=== PATIENT | male | born 1955 | race Caucasian/White ===

== ENCOUNTER → 2017-07-08 | Outpatient (CLI) | payer OTHER ==
[2017-07-08 14:56] LABS: BASOPHILS # (AUTO) 0.03 x10^3/uL (0-0.1); BASOPHILS % (AUTO) 0 % (0-1); EOSINOPHILS # (AUTO) 0.07 x10^3/uL (0-0.4); EOSINOPHILS % (AUTO) 1 % (1-7); LYMPHOCYTES # (AUTO) 2.13 x10^3/uL (1-3.4); LYMPHOCYTES % (AUTO) 28 % (22-44); MD NO; MEAN CORPUSCULAR HEMOGLOBIN 33.2 pg (27.5-34.5); MEAN CORPUSCULAR HGB CONC 35.1 g/dL (33.2-36.2); MEAN CORPUSCULAR VOLUME 94.7 fL (81-97); MEAN PLATELET VOLUME 7.7 fL (7.4-10.4); MONOCYTES # (AUTO) 0.49 x10^3/uL (0.2-0.8); MONOCYTES % (AUTO) 7 % (2-9); NEUTROPHILS # (AUTO) 4.87 x10^3/uL (1.8-6.8); NEUTROPHILS % (AUTO) 64 % (42-75); PLATELET COUNT 171 x10^3/uL (130-400); RED BLOOD COUNT 4.56 x10^6/uL (4.38-5.82); RED CELL DISTRIBUTION WIDTH 12.3 % (9.4-14.8)
[2017-07-08 14:59] LABS: MICROSCOPIC AUTO
[2017-07-08 15:05] LABS: ANION GAP 10 mmol/L (5-15); CHLORIDE 109 mmol/L (98-107); CREATININE 0.99 mg/dL (0.7-1.3); CULTURE INDICATED? NO
== END | disposition home or self-care (01) ==
LOC: STAR 13:37
PROVIDERS: ATTEND Orthopaedic Surgery
DX: Z01.818 Encounter for other preprocedural examination (principal); M17.12 Unilateral primary osteoarthritis, left knee
CPT/HCPCS: 36415; 80048; 81001; 85025; 87081; 93005

== ENCOUNTER 2017-07-28 08:04 | Inpatient (IN) | payer OTHER ==
[~2017-07-28] VITALS: Ht 193 cm; Wt 128.5 kg
[~2017-07-28 08:04] MED LIST: None at this Time
[2017-07-28 08:41] VITALS: BP 161/109
[2017-07-28] MEDS ORDERED: PROMETHAZINE 12.5 MG SUPP PR PRN ×2 (09:00→14:00)
[2017-07-28] MEDS ORDERED: OXYcodone 5 MG/5 ML ORAL.SOL UDC PO PRN (09:00)
[2017-07-28] MEDS ORDERED: MORPHINE SULFATE 4 MG/ML, 1ML IVPush PRN (09:00)
[2017-07-28] MEDS ORDERED: LIDOCAINE-MPF 1%, 2ML INFIL ONE (09:00)
[2017-07-28] MEDS ORDERED: MEPERIDINE/PF 25MG/0.5ML IVPush PRN (09:00)
[2017-07-28] MEDS: LACTATED RINGERS 1,000 ML IV SCH ×2 (09:15→15:18)
[2017-07-28] MEDS ORDERED: MIDAZOLAM 1 MG/ML, 2ML ONE (09:19)
[2017-07-28] MEDS ORDERED: FENTANYL PF 250 MCG/5ML ONE (09:20)
[2017-07-28] MEDS ORDERED: ACETAMINOPHEN 500 MG TABLET ONE (09:24)
[2017-07-28] MEDS ORDERED: FAMOTIDINE 20 MG TABLET ONE (09:25)
[2017-07-28] MEDS ORDERED: GABAPENTIN 300 MG CAPSULE ONE (09:25)
[2017-07-28] MEDS ORDERED: OXYcodone IR 5MG TABLET ONE (09:26)
[2017-07-28] MEDS ORDERED: OXYcodone IR 5MG TABLET PO ONE (09:30)
[2017-07-28] MEDS ORDERED: FAMOTIDINE 20 MG TABLET PO ONE (09:30)
[2017-07-28] MEDS ORDERED: GABAPENTIN 300 MG CAPSULE PO ONE (09:30)
[2017-07-28] MEDS ORDERED: ACETAMINOPHEN 500 MG TABLET PO ONE (09:30)
[2017-07-28] MEDS ORDERED: FENTANYL PF 100 MCG/2ML ONE ×2 (10:12→13:37)
[2017-07-28] MEDS ORDERED: KETOROLAC 60 MG/2 ML ONE (10:25)
[2017-07-28] MEDS ORDERED: TRANEXAMIC ACID 100 MG/ML, 10ML ONE (10:25)
[2017-07-28] MEDS ORDERED: ROPIvacaine/PF 0.2%, 20 ML ONE (10:25)
[2017-07-28] MEDS ORDERED: SODIUM CHLORIDE 0.9% 100 ML ONE (10:25)
[2017-07-28] MEDS ORDERED: EPINEPHRINE 1 MG/ML, 1ML ONE (10:25)
[2017-07-28] MEDS ORDERED: CEFAZOLIN 1,000 MG ONE ×3 (11:21→11:22)
[2017-07-28] MEDS ORDERED: PROPOFOL 10 MG/ML, 20ML ONE ×3 (11:21)
[2017-07-28] MEDS ORDERED: SUCCINYLCHOLINE 20 MG/ML, 10ML ONE (11:22)
[2017-07-28] MEDS ORDERED: ONDANSETRON ODT 8 MG ONE ×2 (11:22)
[2017-07-28] MEDS ORDERED: DEXAMETHASONE 4 MG/ML, 1ML ONE ×2 (11:22)
[2017-07-28] MEDS: D5%-0.45% NACL 1,000 ML IV SCH ×2 (13:31→17:44)
[2017-07-28] MEDS ORDERED: OXYcodone 5 MG/5 ML ORAL.SOL UDC ONE (13:37)
[2017-07-28] MEDS: FENTANYL PF 100 MCG/2ML IV PRN ×2 (13:40→14:00)
[2017-07-28] MEDS ORDERED: ZOLPIDEM 5MG TABLET PO PRN (14:00)
[2017-07-28] MEDS ORDERED: TRANEXAMIC ACID 1,500 MG in SODIUM CHLORIDE 0.9% 100 ML IVPB ONE (14:00)
[2017-07-28] MEDS ORDERED: ONDANSETRON 4 MG TABLET PO PRN (14:00)
[2017-07-28] MEDS ORDERED: DIAZEPAM 5 MG TABLET PO PRN (14:00)
[2017-07-28] MEDS ORDERED: BISACODYL 10 MG SUPP PR PRN (14:00)
[2017-07-28] MEDS ORDERED: MAGNESIUM HYDROXIDE 8%, 30ML UDC PO PRN (14:00)
[2017-07-28] MEDS ORDERED: LORazepam 1MG TABLET PO PRN (14:00)
[2017-07-28] MEDS ORDERED: ALUMINUM/MAG/SIMETHICONE 30 ML UDC PO PRN (14:00)
[2017-07-28] MEDS ORDERED: ONDANSETRON 2MG/ML, 2ML IV PRN (14:00)
[2017-07-28] MEDS ORDERED: PROMETHAZINE 25 MG/ML, 1ML IM PRN (14:00)
[2017-07-28] MEDS ORDERED: DIPHENHYDRAMINE 50 MG CAPSULE PO PRN (14:00)
[2017-07-28] MEDS ORDERED: SENNA/DOCUSATE TABLET PO PRN (14:00)
[2017-07-28] MEDS ORDERED: HYDROmorphone 1 MG/ML, 1ML IV PRN (14:00)
[2017-07-28] MEDS ORDERED: MORPHINE SULFATE 4 MG/ML, 1ML ONE (14:06)
[2017-07-28] MEDS ORDERED: DIAZEPAM 5 MG TABLET ONE (14:25)
[2017-07-28 15:11] VITALS: BP 143/84
[2017-07-28] MEDS: CEFAZOLIN PMX 2GM/50ML 50 ML IVPB SCH (17:44)
[2017-07-28] MEDS: ASPIRIN 81 MG TABLET EC PO SCH (17:44)
[2017-07-28] MEDS: HYDROcodone/APAP 5/325 TABLET PO PRN ×2 (17:57→22:27)
[2017-07-28 19:00] VITALS: BP 151/76
[2017-07-28 19:37] VITALS: BP 120/69
[2017-07-28] MEDS: DOCUSATE 100 MG CAPSULE PO SCH (19:51)
[2017-07-29 00:08] VITALS: BP 112/67
[2017-07-29] MEDS: CEFAZOLIN PMX 2GM/50ML 50 ML IVPB SCH (01:38)
[2017-07-29] MEDS: HYDROcodone/APAP 5/325 TABLET PO PRN ×3 (02:48→11:05)
[2017-07-29] MEDS: D5%-0.45% NACL 1,000 ML IV SCH (05:31)
[2017-07-29] MEDS ORDERED: DEXAMETHASONE 4 MG/ML, 1ML IVPush SCH (06:00)
[2017-07-29] MEDS: ASPIRIN 81 MG TABLET EC PO SCH (06:17)
[2017-07-29] MEDS: DOCUSATE 100 MG CAPSULE PO SCH (07:55)
[2017-07-29] MEDS ORDERED: TAMSULOSIN 0.4 MG CAP.ER.24H PO SCH (09:00)
[2017-07-29 09:35] VITALS: BP 117/77
[2017-07-29] MEDS ORDERED: HYDR-3307 PO (10:01)
[2017-07-29] MEDS ORDERED: KETOROLAC 30 MG/1 ML IV SCH (14:00)
== END 2017-07-29 11:20 | disposition home or self-care (01) | DRG 470 ==
LOC: OUT 08:04 → ORIP 13:31 → 4NOR 15:01 → DCLOUNGE 07-29 11:10
PROVIDERS: ADMIT Orthopaedic Surgery; ATTEND Orthopaedic Surgery
PROC: 3E0T3BZ Introduction of Anesthetic Agent into Peripheral Nerves and Plexi, Percutaneous Approach (ICD-10-PCS; 2017-07-28)
PROC: 0SRD069 Replacement of Left Knee Joint with Oxidized Zirconium on Polyethylene Synthetic Substitute, Cemented, Open Approach (ICD-10-PCS; principal; 2017-07-28 10:45)
DX: M17.12 Unilateral primary osteoarthritis, left knee (principal); I10 Essential (primary) hypertension; M21.00 Valgus deformity, not elsewhere classified, unspecified site
CPT/HCPCS: 36415; 85018; C1713; J0171; J0690; J1100; J1885; J2250; J2704; J2795; J3010; Q0162; C1776; J0330; J7120

== ENCOUNTER → 2018-02-21 | Outpatient (CLI) | payer OTHER ==
[~2018-02-21] MED LIST changes: +HYDR-3307 PO; +LISI-167 PO
[2018-02-21 14:55] LABS: BASOPHILS % (AUTO) 0 % (0-1); EOSINOPHILS % (AUTO) 1 % (1-7); LYMPHOCYTES % (AUTO) 23 % (22-44); MEAN CORPUSCULAR HEMOGLOBIN 33.6 pg (27.5-34.5); MEAN CORPUSCULAR HGB CONC 34.7 g/dL (33.2-36.2); MEAN CORPUSCULAR VOLUME 96.9 fL (81-97); MEAN PLATELET VOLUME 8.3 fL (7.4-10.4); MONOCYTES % (AUTO) 7 % (2-9); NEUTROPHILS % (AUTO) 68 % (42-75); PLATELET COUNT 192 x10^3/uL (130-400); RED BLOOD COUNT 4.22 x10^6/uL (4.38-5.82); RED CELL DISTRIBUTION WIDTH 12.7 % (9.4-14.8)
[2018-02-21 14:56] LABS: BASOPHILS # (AUTO) 0.02 x10^3/uL (0-0.1); EOSINOPHILS # (AUTO) 0.09 x10^3/uL (0-0.4); LYMPHOCYTES # (AUTO) 1.96 x10^3/uL (1-3.4); MD NO; MONOCYTES # (AUTO) 0.62 x10^3/uL (0.2-0.8); NEUTROPHILS # (AUTO) 5.75 x10^3/uL (1.8-6.8)
[2018-02-21 14:57] LABS: MICROSCOPIC AUTO
[2018-02-21 15:00] LABS: CULTURE INDICATED? NO
[2018-02-21 15:01] LABS: ALANINE AMINOTRANSFERASE 34 U/L (12-78); ALBUMIN 3.6 g/dL (3.4-5.0); ANION GAP 8 mmol/L (5-15); CALCIUM 8.9 mg/dL (8.5-10.1); CHLORIDE 110 mmol/L (98-107)
[2018-02-21 15:04] LABS: ALKALINE PHOSPHATASE 60 U/L (45-117); BILIRUBIN,TOTAL 0.5 mg/dL (0.2-1.0); CREATININE 1.06 mg/dL (0.7-1.3); TOTAL PROTEIN 7.6 g/dL (6.4-8.2)
== END | disposition home or self-care (01) ==
LOC: STAR 13:46
PROVIDERS: ATTEND Orthopaedic Surgery
DX: Z01.818 Encounter for other preprocedural examination (principal); M17.11 Unilateral primary osteoarthritis, right knee; I49.8 Other specified cardiac arrhythmias
CPT/HCPCS: 36415; 80053; 81001; 85025; 87081; 93005

== ENCOUNTER 2018-03-02 10:20 | Inpatient (IN) | payer OTHER ==
[2018-02-21 14:43] VITALS: BP 155/100
[~2018-03-02] VITALS: Ht 193 cm; Wt 126.7 kg
[2018-03-02] MEDS ORDERED: LACTATED RINGERS 1,000 ML IV SCH (10:37)
[2018-03-02] MEDS ORDERED: OxyconTIN ER 20 MG TAB.ER PO ONE (11:00)
[2018-03-02] MEDS ORDERED: GABAPENTIN 300 MG CAPSULE PO ONE (11:00)
[2018-03-02] MEDS ORDERED: ONDANSETRON ODT 8 MG PO ONE (11:00)
[2018-03-02] MEDS ORDERED: TAMSULOSIN 0.4 MG CAP.ER.24H PO ONE (11:00)
[2018-03-02] MEDS ORDERED: ACETAMINOPHEN 500 MG TABLET PO ONE (11:00)
[2018-03-02] MEDS ORDERED: KETOROLAC 60 MG/2 ML ONE (13:25)
[2018-03-02] MEDS ORDERED: TRANEXAMIC ACID 100 MG/ML, 10ML ONE ×2 (13:25→13:26)
[2018-03-02] MEDS ORDERED: SODIUM CHLORIDE 0.9% 100 ML ONE (13:26)
[2018-03-02] MEDS ORDERED: ROPIvacaine/PF 0.2%, 20 ML ONE (13:26)
[2018-03-02] MEDS ORDERED: EPINEPHRINE 1 MG/ML, 1ML ONE (13:26)
[2018-03-02] MEDS ORDERED: MIDAZOLAM 1 MG/ML, 2ML ONE (13:42)
[2018-03-02] MEDS ORDERED: PROPOFOL 50 ML ONE ×2 (13:42→15:22)
[2018-03-02] MEDS ORDERED: FENTANYL PF 100 MCG/2ML ONE (13:42)
[2018-03-02] MEDS ORDERED: CEFAZOLIN 1,000 MG ONE (15:27)
[2018-03-02] MEDS ORDERED: LIDOCAINE-MPF 2% ,5ML ONE (15:27)
[2018-03-02] MEDS ORDERED: BUPIVACAINE/PF 0.25% ONE (15:27)
[2018-03-02] MEDS ORDERED: DEXAMETHASONE 4 MG/ML, 1ML ONE (15:27)
[2018-03-02] MEDS ORDERED: FENTANYL PF 100 MCG/2ML IV PRN (15:30)
[2018-03-02] MEDS ORDERED: ONDANSETRON 2MG/ML, 2ML IV PRN ×2 (15:30→16:30)
[2018-03-02] MEDS ORDERED: LABETALOL 5MG/ML, 20ML IV PRN (15:30)
[2018-03-02] MEDS ORDERED: HYDROmorphone 2 MG/ML, 1ML IVPush PRN (15:30)
[2018-03-02] MEDS ORDERED: MIDAZOLAM 1 MG/ML, 2ML IV PRN (15:30)
[2018-03-02] MEDS ORDERED: ALBUTEROL/IPRATROPIUM 2.5MG/0.5MG, 3 ML NPPB PRN (15:30)
[2018-03-02] MEDS ORDERED: MEPERIDINE/PF 25MG/0.5ML IVPush PRN (15:30)
[2018-03-02] MEDS ORDERED: OXYcodone 5 MG/5 ML ORAL.SOL UDC PO PRN (15:30)
[2018-03-02] MEDS ORDERED: hydrALAzine 20 MG/ML, 1ML IV PRN (15:30)
[2018-03-02] MEDS: D5%-0.45% NACL 1,000 ML IV SCH (16:08)
[2018-03-02] MEDS ORDERED: ASPI-650 PO (16:21)
[2018-03-02] MEDS ORDERED: SENN1TAB8 PO (16:21)
[2018-03-02] MEDS ORDERED: MAGNESIUM HYDROXIDE 8%, 30ML UDC PO PRN (16:30)
[2018-03-02] MEDS ORDERED: DIAZEPAM 5 MG TABLET PO PRN (16:30)
[2018-03-02] MEDS ORDERED: PROMETHAZINE 12.5 MG SUPP PR PRN (16:30)
[2018-03-02] MEDS ORDERED: TRANEXAMIC ACID 1,000 MG in SODIUM CHLORIDE 0.9% 100 ML IVPB ONE (16:30)
[2018-03-02] MEDS ORDERED: ONDANSETRON 4 MG TABLET PO PRN (16:30)
[2018-03-02] MEDS ORDERED: ACETAMINOPHEN 650 MG/20.3 ML UDC PO PRN (16:30)
[2018-03-02] MEDS ORDERED: BISACODYL 10 MG SUPP PR PRN (16:30)
[2018-03-02] MEDS ORDERED: ALUMINUM/MAG/SIMETHICONE 30 ML UDC PO PRN (16:30)
[2018-03-02] MEDS ORDERED: ZOLPIDEM 5MG TABLET PO PRN (16:30)
[2018-03-02] MEDS ORDERED: PROMETHAZINE 25 MG/ML, 1ML IM PRN (16:30)
[2018-03-02] MEDS ORDERED: LORazepam 1MG TABLET PO PRN (16:30)
[2018-03-02] MEDS ORDERED: OXYcodone IR 5MG TABLET PO PRN (16:30)
[2018-03-02] MEDS ORDERED: HYDROcodone/APAP 5/325 TABLET PO PRN (16:30)
[2018-03-02] MEDS ORDERED: SENNA/DOCUSATE TABLET PO PRN (16:30)
[2018-03-02] MEDS ORDERED: DIPHENHYDRAMINE 25 MG CAPSULE PO PRN (16:30)
[2018-03-02] MEDS ORDERED: HYDROmorphone 1 MG/ML, 1ML IV PRN (16:30)
[2018-03-02 20:07] VITALS: BP 122/79
[2018-03-02] MEDS ORDERED: DOCUSATE 100 MG CAPSULE PO SCH (21:00)
[2018-03-02] MEDS ORDERED: CEFAZOLIN PMX 2GM/50ML 50 ML IVPB SCH (22:00)
[2018-03-02] MEDS ORDERED: SODIUM CHLORIDE 0.9% 1,000ML IVBOLUS ONE (22:00)
[2018-03-03 00:10] VITALS: BP 121/74
[2018-03-03] MEDS: D5%-0.45% NACL 1,000 ML IV SCH (01:35)
[2018-03-03 03:43] VITALS: BP 126/84
[2018-03-03] MEDS ORDERED: ASPIRIN 81 MG TABLET EC PO SCH (06:00)
[2018-03-03] MEDS ORDERED: DEXAMETHASONE 4 MG/ML, 1ML IVPush SCH (06:00)
[2018-03-03] MEDS ORDERED: LISINOPRIL 10 MG TABLET PO SCH (09:00)
[2018-03-03] MEDS ORDERED: MULTIVITAMINS/MINERALS TABLET PO SCH (09:00)
[2018-03-03] MEDS ORDERED: KETOROLAC 30 MG/1 ML IV SCH (16:30)
== END 2018-03-03 06:03 | disposition home or self-care (01) | DRG 470 ==
LOC: OUT 10:20 → ORIP 16:08 → 4NOR 17:14
PROVIDERS: ADMIT Orthopaedic Surgery; ATTEND Orthopaedic Surgery
PROC: 3E0T3BZ Introduction of Anesthetic Agent into Peripheral Nerves and Plexi, Percutaneous Approach (ICD-10-PCS; 2018-03-02)
PROC: 0SRC069 Replacement of Right Knee Joint with Oxidized Zirconium on Polyethylene Synthetic Substitute, Cemented, Open Approach (ICD-10-PCS; principal; 2018-03-02 13:15)
DX: M17.11 Unilateral primary osteoarthritis, right knee (principal); I10 Essential (primary) hypertension
CPT/HCPCS: 36415; 85014; 85018; C1713; G0378; J0171; J0690; J1100; J1885; J2250; J2704; J2795; J3010; J3490; Q0162; C1776; J7030; J7120